=== PATIENT | male | born 1975 | race Caucasian/White ===

== ENCOUNTER 2024-06-20 16:27 | Emergency (ER) | payer SELFPAY ==
[2024-06-20 16:49] VITALS: BP 153/87
--- NOTE | 2024-06-20 16:49 | ED.GENMED ---
History of Present Illness
General
Chief Complaint: Psychiatric Problem
Source: ambulance crew and police
Exam Limitations: clinical condition
Time Seen by Provider: 06/20/24 16:33
History of Present Illness
History of Present Illness:
48-year-old male who presents in handcuffs by police with EMS. Spouse states that the patient has a history of bipolar disorder as well as substance abuse in the past. He was going to his mother's for Isabel and she noticed that his speech
single slurred but the patient asked his son to drive. When he got back the patient was 'acting crazy'. Patient's son states that he was acting bizarrely. He then started running in the streets and yelling. He had to be tackled by a neighbor.
Police and EMS state he was quite combative and they had to restrain him and given Versed. The patient's states that the bag mushrooms fell to the ground. The patient does answer 'yes' when I asked if he took mushrooms. states he does
have a history of alcoholism but has been doing okay. She is concerned about his behavior in general. Spouse also states that this is the first [place] without his father
Past History
Past History
ED Past Medical History: Psychiatric (Bipolar disorder) and Other (Irritable bowel syndrome)
ED Past Surgical History: Appendectomy (May 2011), Urological (Varicocele at age 14) and Other (Right inguinal hernia repair 2006)
Social History
Tobacco: Former smoker
Alcohol: Former
Drug: Former user
Personal:
Living: with family
Employment: Employed
Family History
Family History: Negative Early CAD
Phy Exam
Physical Exam
Physical Exam:
CONSTITUTIONAL Vital signs reviewed, Patient alert but combative and appears to be hallucinating. Appears intoxicated
HEAD atraumatic, normocephalic.
EYES eyelids normal to inspection, Extraocular muscles intact, Conjunctiva normal, Sclera normal.
NECK normal range of motion, Trachea midline, no jugular venous distention.
RESP no respiratory distress
BACK No obvious deformities
UPPER EXTREMITY Gross Range of motion normal, gross motor strength normal
LOWER EXTREMITY Gross range of motion normal, Gross motor strength normal
NEURO No focal motor deficits include, Cranial Nerves intact to screening exam.
SKIN Skin warm, dry, and normal in color.
Course
Orders/Labs/Results
Orders:
Orders
06/20/24 16:33
Cardiac Monitoring- Treatment ONCE
06/20/24 16:34
Electrocardiogram (*1) Stat
Reason for Study: Other
Other Reason for Exam: overdose
EKG- Treatment ONCE
06/20/24 16:46
Acetaminophen Urgent
Alcohol Urgent
Complete Blood Count/With Diff Urgent
Comprehensive Metabolic Panel Urgent
[place] Urgent
Salicylate Urgent
06/20/24 16:49
1:1 Observation - Suicide/ Violent Behavior As Directed
Restraints - Violent As Directed
Restraint Type-: Seclusion- ED ONLY
Apply From (date): 06/20/24
Apply from (time): 16:49
Remove (date): 06/20/24
Remove (time): 20:49
06/20/24 17:53
Lorazepam [Ativan] 1 mg IV NOW STA
06/20/24 18:41
Restraints - Violent As Directed
Restraint Type-: Locked-4 point/4 rails
Apply From (date): 06/20/24
Apply from (time): 18:30
Remove (date): 06/20/24
Remove (time): 22:30
06/21/24 00:31
Crisis Consult Urgent
Reason for Consult: agitation
Abnormal Lab Results
06/20/24
16:46
MCH 31.2 H pg
(27.0-31.0)
Abs Immat Gran (auto) 0.1 H 10^3/uL
(0-0.05)
Absolute Neuts (auto) 7.3 H 10^3/uL
(1.4-6.5)
Absolute Monos (auto) 0.9 H 10^3/uL
(0.1-0.6)
Lymphocytes % 19.9 L %
(20.5-51.1)
Glucose 107 H mg/dl
(70-99)
Albumin 5.1 H g/dl
(3.5-5.0)
Salicylates < 1.0 L mg/dl
(2.0-20.0)
Acetaminophen < 10 L ug/ml
(10-30)
06/20/24 16:46
06/20/24 16:46
Vital Signs
Initial and Last Documented VS:
Initial Vital Signs
Temp Pulse Resp BP Pulse Ox
98.2 F 67 20 153/87 100
06/20/24 16:49 06/20/24 16:49 06/20/24 16:49 06/20/24 16:49 06/20/24 16:49
Last Documented Vital Signs
Temp Pulse Resp BP Pulse Ox
97.7 F 84 18 141/80 99
06/21/24 00:37 06/21/24 02:48 06/21/24 02:48 06/21/24 02:48 06/21/24 02:48
MDM/Problems Addressed
Differential Diagnosis Includes:
Overdose, acetaminophen overdose, salicylate overdose, alcohol Doxycin, substance abuse, electrolyte imbalance
MDM/Problems Addressed:
Hallucinogen use
*Pulse Oximetry
Patient hypoxic: no
*EKG
Interpreted by ED Provider?: Yes
Interpretation: normal
Rate: normal
[place]: normal axis
QRS Pattern: normal QRS
Ischemia: no ischemia
*Manufacturing Manager Interpretation
Rate: normal
Interpretation: normal
Rhythm: sinus
*Critical Care Note
Total Time (30-74mins, 75-104mins- exclusive of procedures): Not Applicable
Data Reviewed
Source: patient, spouse, ambulance crew and police
Prescriptions/Medications Considered But Not Given:
Consider Haldol but patient sort of calm down after some time
Patient Management
Escalation/DeEscalation of care consider admission/obs:
Patient reassessed and is much more calm. Occasionally yells out loud. Does appear to be hallucinating at times. Spouse filed [phone] which will have to be assessed when patient is more sober.
ED Attending Note
-
Portions of this chart may have been created with voice recognition software.� Occasional wrong word or��sound alike� substitutions may have occurred due to the inherent limitations of voice recognition software.
Discharge Plan
Departure
Patient Disposition: Home (Routine Discharge)
Date of Disposition: 06/20/24
Time of Disposition: 18:53
Patient with high blood pressure during this ER visit?: Yes
Discharge Problem:
Hallucinogen use
Instructions: Substance use disorder - ED discharge instructions
Prescriptions:
No Action
lamotrigine [Lamictal] 150 MG tablet
300 mg PO DAILY
bupropion HCl [Wellbutrin XL] 150 MG tablet extended release 24 hr
300 mg PO DAILY
oxycodone-acetaminophen 5 MG/325 MG tablet
1 tab PO Q4HPRN PRN (Reason: Pain) Qty: 15 0RF
famotidine 20 MG tablet
20 mg PO BID Qty: 28 0RF
Rx Instructions:
Take 20 mg twice a day for 14 days
ascorbic acid (vitamin C) [Vitamin C] 500 MG tablet
1,000 mg PO BID Qty: 56 0RF
Rx Instructions:
Take 1,000 mg twice a day for 14 days
aspirin 81 MG tablet,chewable
81 mg PO DAILY Qty: 14 0RF
Rx Instructions:
Take 81 mg daily for 14 days
zinc sulfate 220 MG capsule
220 mg PO DAILY Qty: 14 0RF
Rx Instructions:
Take 220 mg daily for 14 days
cholecalciferol (vitamin D3) 1,000 UNITS tablet
2,000 units PO DAILY Qty: 28 0RF
Rx Instructions:
Take 2,000 units daily for 14 days
melatonin 5 MG tablet
5 mg PO HS Qty: 14 0RF
Rx Instructions:
Take 5 mg daily at bedtime for 14 days
Referrals:
UNKNOWN,NO INTERVIEW [Family Provider] -
Interventions
Interventions:
*Risk Screen - Suicide Last Done: 06/20/24 16:49
*General Assessment Last Done: 06/20/24 16:49
*Neglect/Abuse Screening Last Done: 06/20/24 16:49
ED- Fall Risk Assessment Last Done: 06/21/24 06:45
*ED COVID-19 Vaccine History Last Done: 06/20/24 19:38
*Nursing Disposition Last Done: 06/21/24 06:45
ED-Psychological Assessment Last Done: 06/20/24 17:04
Discharge Date and Time
Discharge Date/Time: 06/21/24 06:45
Print Language: SAMMARINESE
[2024-06-20 16:52] LABS: % Basophils 0.6 % (0-2); % Eosinophils 2.5 % (0-6); % Immature Granulocytes 0.5 % (0-0.5); % Lymphocytes 19.9 % (20.5-51.1); % Neutrophils 68.5 % (42.2-75.2); Absolute Basophils 0.1 10^3/uL (0-0.2); Absolute Eosinophils 0.3 10^3/uL (0-0.7); Absolute Immature Granulocytes 0.1 10^3/uL (0-0.05); Absolute Lymphocytes 2.1 10^3/uL (1.2-3.4); Absolute Monocytes 0.9 10^3/uL (0.1-0.6); Absolute Neutrophils 7.3 10^3/uL (1.4-6.5); Hematocrit 49.3 % (39.0-52.0); Hemoglobin 17.6 g/dL (13.0-18.0); Mean Corp Hgb Conc. 35.7 g/dL (33.0-37.0); Mean Corpuscular Hgb 31.2 pg (27.0-31.0); Mean Corpuscular Volume 87.4 fL (80.0-94.0); Nucleated Red Blood Cells % 0 % (-); Platelet Count 308 10^3/uL (130-400); Red Blood Cell Count 5.64 10^6/uL (4.70-6.10); Red Cell Dist. Width 11.8 % (11.5-14.5); White Blood Cell Count 10.7 10^3/uL (4.8-10.8)
[2024-06-20 17:11] LABS: ALT (SGPT) 30 U/L (0-50); AST (SGOT) 33 U/L (17-59); Acetaminophen < 10 ug/ml (10-30); Albumin 5.1 g/dl (3.5-5.0); Alkaline Phosphatase 57 U/L (38-126); Blood Urea Nitrogen 19 mg/dl (9-20); Carbon Dioxide 24 mmol/L (22-30); Chloride 103 mmol/L (98-107); Estimated Creatinine Clearance 85 ml/min; Glucose 107 mg/dl (70-99); Lithium 0.6 mmol/L (0.6-1.2); Potassium 3.7 mmol/L (3.5-5.1); Salicylate < 1.0 mg/dl (2.0-20.0); Sodium 139 mmol/L (135-145); Total Bilirubin 0.5 mg/dl (0.2-1.3); Total Protein 7.5 g/dl (6.3-8.2); eGFR > 60.00
[2024-06-20 17:13] LABS: Alcohol None Detected
[2024-06-20] MEDS: ATIVAN 1 MG IV (18:03)
--- NOTE | 2024-06-21 00:32 | ED.CRISIS ---
ED Crisis Note
ED Crisis Note
Subjective:
Patient arrives hallucinating and agitated
Assessment/Plan:
Patient is now fully awake, alert and oriented x 3. He admits to using mushrooms. He has now calm. Denies suicidal and homicidal thoughts. Crisis consulted.
[2024-06-21 00:37] VITALS: BP 141/94
--- NOTE | 2024-06-21 02:20 | ED.CRISIS ---
ED Crisis Note
ED Crisis Note
Assessment/Plan:
Patient is now fully awake, alert and oriented x 3. He admits to using mushrooms. He has now calm. Denies suicidal and homicidal thoughts. Crisis consulted.
Crisis evaluated patient. He is clinically sober and calm now. He denies SI and HI to crisis. [facility] gave patient resources for help for substance abuse. Patient's earlier agitation was related to substance abuse and therefore, he is not
appropriate for a 302. He remains calm and cooperative now
[2024-06-21 02:48] VITALS: BP 141/80
== END 2024-06-21 06:45 | disposition home or self-care (01) ==
LOC: EMR 16:27
PROVIDERS: EMERGENCY PHYSICIAN Emergency Medicine
DX: F16.90 Hallucinogen use, unspecified, uncomplicated (principal); F31.9 Bipolar disorder, unspecified; K58.9 Irritable bowel syndrome, unspecified; Z87.891 Personal history of nicotine dependence; Z90.49 Acquired absence of other specified parts of digestive tract
CPT/HCPCS: 99283; 80053; 80143; 80178; 80179; 82077; 85025; 93005